=== PATIENT | female | born 1965 | race Caucasian/White ===

== ENCOUNTER → 2023-05-06 08:42 | Outpatient (BNVA) | payer BC, SELFPAY | PROVIDERS: PCP Family Medicine; Visit Provider Physician Assistant ==

== ENCOUNTER 2023-05-31 08:19 | Outpatient (AMB) | payer BC, SELFPAY ==
--- NOTE | 2023-05-31 08:20 | MHC.OFFVISWM ---
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 Her goal is to weigh around 175 lbs. . She reports first being concerned about her weight through COVID bradyic gained 75 lbs. She has tried multiple methods of weight loss including-WW, plant based food plan without permanent results. She lives with her adult son. She works M- F 7am - 7 pm and 8 hours on Saturday. She wakes at: 5:15 am bed at 9;30 pm Breakfast:8am - Shasha tea - sweetened with 1% milk. 8:30 am - dominican muffin or toast with butter. 10am - snacks at work, granola bar, fruit or cheese Lunch: 12 - 1pm - eats at her desk. Leftovers or salad from home - with vegetables, blue cheese crumbles.water Dinner: 5- 5:30 pm - protein, vegetable and carb.water After dinner: no snacking after dinner Other snacks: crackers, snacks on crunchy foods . may have another Shasha Liquids: stopped soda in April, no fruit juice, green tea with stevia Alcohol intake: 2 drinks once per week, beer or hard cider mostly, tobacco: none, marijuana: none Exercise: stopped Gocella 2019. Rower at home - intermittently throughout day if works at home. Walks her dog bid. Has access to gym at work. Loves to be outside with physical activity - downhill skis on weekends now. Last mammogram: up to date CYNTHIA: 5 ESS: 5 GERD: 0 QOL: 102 PENDING SALE TO [facility] Medical History (Updated 05/31/23 @ 08:36 by Ary Hudson PA-C) Cancer of thyroid Surgical History (Updated 05/06/23 @ 08:51 by Alea Ann [facility]) Hx of hysterectomy Hx of cholecystectomy Hx of thyroidectomy Hx of appendectomy Family History (Updated 05/06/23 @ 08:53 by Alea Ann CMA) Mother Heart problem Alcohol abuse Father Alzheimer disease Daughter Obesity Son Seizures Obesity Social History (Updated 05/06/23 @ 08:52 by Alea Ann [facility]) Alcohol intake: current Alcohol intake frequency: a few times a month Alcohol type: hard liquor Patient Tobacco Use Status: Never used Tobacco Physical Exam Vital Signs: Last Vital Signs Temp 96.8 F 05/31/23 08:26 Pulse 52 05/31/23 08:26 BP 124/79 05/31/23 08:26 Pulse Ox 96 05/31/23 08:26 Oxygen Delivery Method Room Air 05/31/23 08:26 BMI result Body Mass Index 35.7 Assessment & Plan Assessment & Plan (1) Obesity: Code(s): E66.9 - Obesity, unspecified Plan: This is a 57 yo woman with obesity who will start SWL program to prepare for bariatric surgery. She will start MWL classes and watch all classes before her appt with Ciera. 1. Adequate sleep of 7-8 hours per night discussed 2. Healthy meal plan - All meals/MR's need to take 20 minutes to complete - lyndan does not like protien shakes and not sure if she likes bars. shasha tea 8:20 am - yogurt or cc with 1/4 c berries (may try 30 gram sahke) 12:30 pm - 4 oz and 6 oz 3:30 pm- bar or 2 hb eggs or 15- 20 grams protein 6 pm- dinner of 6 oz lean protein, 8 oz vegetable, 1 serving fruit Exercise - Cardio 4 - 5 d week, goal 2k pricila/week - >10cal/minute = treadmill at speed 3.0, incline 1-7 - to burn 300 calories to start 3 d/ wk - weights -15/15/30 lbs Pt will purchase body composition analyzer (recommended list given to patient) and weight herself weekly. Next appt with Ciera in 4 weeks, me in 8 weeks. Text me with any questions and weekly weights. Patient is morbidly obese and is not considered stable at this time.?I spent a total of 60 minutes reviewing/updating records, examining the patient and counseling the patient on weight management as detailed above. Coding Level of Care Code New Pt Level 5 (45024) Diagnoses Obesity E66.9
[2023-05-31 08:26] VITALS: BP 124/79; PULSE 52; TEMP 36; O2SAT 96; BMI 35.7
== END 2023-05-31 09:33 | disposition home or self-care (01) ==
PROVIDERS: PCP Family Medicine; Visit Provider Physician Assistant
DX: E66.9 Obesity, unspecified (principal); Z68.35 Body mass index [BMI] 35.0-35.9, adult
CPT/HCPCS: 99205

== ENCOUNTER → 2023-05-31 08:19 | Outpatient (BNVA) | payer BC, SELFPAY | PROVIDERS: PCP Family Medicine; Visit Provider Physician Assistant ==

== ENCOUNTER 2023-07-01 07:59 | Outpatient (AMB) | payer BC, SELFPAY ==
--- NOTE | 2023-07-01 08:35 | A.OFFVIS_ITS ---
Intake Intake Visit Reasons: (OV) Initial Nutrition MWL Allergies amoxicillin Allergy (Mild, Verified 05/31/23 08:26) Rash HPI Nutrition Presentation Reason for consult elevated BMI Diet Assmnt Details I am doing terrible . Lots of work stresss. works 14 hour days. struggling w emotional eating, has a very stressful job. I am never hungry because I am always eating . Strongly dislikes the protein shakes and does not feel the nutrition plan works for her. On the weekends, she is able to exercise but doesn't feel the week days it is possible. Knows this would be helpful for stress management. Dietary counseling reduction Who buys your food self Who prepares/cooks your food self Lifestyle Emotional Eating Reports stress Reads food labels Yes Exercise Yes Food frequency Fruit: daily, Vegetables: daily, Grains/pasta/breads/cereal (carbs): daily, Meats/poultry/fish (protein): daily and Meat substitutes/nuts/seeds/legumes: daily Diagnosis Nutrition problem #1 overweight/obesity As related to (etiology) #1 excess energy intake and physical inactivity As evidenced by (sign/symptom) #1 high BMI Monitoring/Goals Nutrition problem monitoring total energy intake, level of knowledge/skill, total PRO intake and weight Outcome progress verbalized understanding Learning/Education Readiness to learn good Stages of change preparation Educational materials provided Yes Most Recent Diabetes Results: No Data to Display [facility] [place] Medical History (Updated 05/31/23 @ 08:36 by Ary Hudson PA-C) Cancer of thyroid Surgical History (Updated 05/06/23 @ 08:51 by Alea Ann CMA) Hx of hysterectomy Hx of cholecystectomy Hx of thyroidectomy Hx of appendectomy Family History (Updated 05/06/23 @ 08:53 by Alea Ann CMA) Mother Heart problem Alcohol abuse Father Alzheimer disease Daughter Obesity Son Seizures Obesity Social History (Updated 05/06/23 @ 08:52 by Alea Ann CMA) Alcohol intake: current Alcohol intake frequency: a few times a month Alcohol type: hard liquor Patient Tobacco Use Status: Never used Tobacco Assessment & Plan Assessment & Plan (1) Obesity (BMI 30-39.9): Code(s): E66.9 - Obesity, unspecified Plan follow up with PA as previously scheduled. Patient Instructions: planing ahead, emotional eating and stress coping strategies,mindfu eating and hunger scale, food sources of protein and goal of 20-30g per meal Coding Level of Care Code Nutr Indiv Intake (22406) Diagnoses Obesity (BMI 30-39.9) E66.9 Time Spent (min) 60
== END 2023-07-01 09:17 | disposition home or self-care (01) ==
PROVIDERS: PCP Family Medicine; Visit Provider Dietitian, Registered
DX: E66.9 Obesity, unspecified (principal)

== ENCOUNTER → 2023-07-01 07:59 | Outpatient (BNVA) | payer BC, SELFPAY | PROVIDERS: PCP Family Medicine; Visit Provider Dietitian, Registered | DX: E66.9 Obesity, unspecified (principal); Z71.3 Dietary counseling and surveillance | CPT/HCPCS: 97802 ==